=== PATIENT | male | born 1980 | race Caucasian/White ===

== ENCOUNTER → 2024-10-09 13:51 | Outpatient (REF) | payer BC, SELFPAY | LOC: RAD 13:51 | PROVIDERS: ATTENDING PHYSICIAN Physician Assistant | DX: R10.31 Right lower quadrant pain (principal) | CPT/HCPCS: 74177; Q9967 ==

== ENCOUNTER → 2025-01-08 07:38 | Outpatient (REF) | payer BC, SELFPAY | LOC: MRI 3T 07:38 | PROVIDERS: ATTENDING PHYSICIAN Physician Assistant; FAMILY PHYSICIAN Family Medicine | DX: K86.2 Cyst of pancreas (principal) | CPT/HCPCS: 74183; A9585 ==